=== PATIENT | female | born 1970 | race Caucasian/White ===

== ENCOUNTER 2025-01-25 15:11 | Outpatient (CLI) | payer OTHER, SELFPAY ==
--- NOTE | 2025-01-25 13:52 | DI.RAD_ITS ---
Exam(s) XR PELVIS AP EXAM: XR PELVIS AP CLINICAL HISTORY: OA L HIP. TECHNIQUE: 2D digital imaging was performed. One image was obtained. COMPARISON: RF XR HIP LT MIN 2V AND PELVIS from 03/24/2024 MR MR HIP LT WO CONTRAST from 07/21/2024 FINDINGS: BONES: No acute fracture is present. No bony destructive lesion is seen. JOINTS: No dislocation present. There is moderate narrowing of the left hip joint. The sacroiliac joints and symphysis pubis are unremarkable. SOFT TISSUE: Normal. IMPRESSION: Moderate narrowing of the left hip consistent with degenerative changes. DATA REPOSITORY: RADIATION DOSE DELIVERED:
== END 2025-01-25 15:12 | disposition home or self-care (01) ==
LOC: DIORS 15:11
PROVIDERS: PCP Physician Assistant; Visit Provider Physician Assistant
DX: M16.12 Unilateral primary osteoarthritis, left hip (principal)
CPT/HCPCS: 72170

== ENCOUNTER 2025-01-25 17:10 | Outpatient (REF) | payer OTHER, SELFPAY ==
[2025-01-25 19:26] LABS: HCT 40.5 % (36.0-46.0); HGB 13.2 g/dL (11.2-15.7); MCH 30.6 pg (27.0-33.0); MCHC 32.6 % (32.0-36.0); MCV 94 fL (80-95); MPV 10.0 fL (8.0-11.0); Platelet Count 266 10^3/uL (130-400); RBC 4.32 10^6/uL (3.93-5.22); RDW 12.1 % (11.7-14.6); RDW-SD 42.0 fL; WBC 6.62 10^3/uL (4.4-10.8)
[2025-01-25 19:31] LABS: Anion Gap 5.6 mmol/L (3-11); BUN 23 mg/dL (7-18); CO2 31.4 mmol/L (21.0-32.0); Calcium 9.6 mg/dL (8.5-10.1); Chloride 103 mmol/L (98-107); Estimated GFR 103.35 (mL/min/1.73m2); Glucose 89 mg/dL (74-106); Potassium 4.1 mmol/L (3.5-5.1); Sodium 140 mmol/L (136-145)
== END 2025-01-25 17:11 | disposition home or self-care (01) ==
LOC: LBN 17:10
PROVIDERS: PCP Physician Assistant; Visit Provider Student in an Organized Health Care Education/Training Program
DX: M16.12 Unilateral primary osteoarthritis, left hip (principal); Z01.818 Encounter for other preprocedural examination
CPT/HCPCS: 80048; 85027

== ENCOUNTER 2025-02-02 05:29 | Day surgery (SDC) | payer OTHER, SELFPAY ==
[2025-02-02] VITALS (19 sets, daily range): BP systolic 92–114; BP diastolic 48–72; PULSE 69–91; RESP 11–22; TEMP 36.3–36.5; O2SAT 96–100; BMI 26.9
[2025-02-02] MEDS: Acetaminophen 500 MG TAB 1000 MG PO (06:31)
[2025-02-02] MEDS: Lactated Ringers 1,000 ML 80 ML IV (06:50)
--- NOTE | 2025-02-02 06:56 | W.ANESPRE ---
General Info Date of Service Date Performed: 02/02/25 Height: 5 ft 8 in Weight: 80.2 kg Body Mass Index (BMI): 26.9 Surgical Procedure: Operation Date: 02/02/25 07:50 Proposed Procedure Side Surgeon p Hip Total Hip Anterior, ACTIS Left Francis Ocampo MD Meds Allergies and Home Medications Allergies Allergy/AdvReac Type Severity Reaction Status Date / Time Sulfa (Sulfonamide Allergy Intermediate Hives Verified 02/02/25 06:10 Antibiotics) Home Medication ?Medication ?Instructions ?Recorded fluticasone propionate 50 1 spray intranasal DAILY 06/25/24 mcg/actuation nasal spray,suspension lactobacillus combination no.4 3 3,000 mmu cells PO DAILY 06/25/24 billion cell capsule (Probiotic) ondansetron 4 mg disintegrating 4 mg PO Q8H 06/25/24 tablet rizatriptan 10 mg tablet 10 mg PO ONCE 06/25/24 pantoprazole 40 mg tablet,delayed 40 mg PO DAILY PRN 07/28/24 release V-cacp-Gdkbdrsos-propol-elder 50 ml PO DAILY 09/21/24 mg-5 mg-239 mg-50 mg/5 mL oral syrup (Sambucus Elderberry Immune) rj-6-nnb-epa-fish oil-vit D3 300 cap PO DAILY 09/21/24 mg-1,000 mg-1,000 unit capsule vitamin B complex 1 tab PO DAILY 09/21/24 magnesium oxide 400 mg (241.3 mg 400 mg PO DAILY 01/25/25 magnesium) tablet (MagOx) turmeric root extract 300 mg 300 mg PO DAILY 01/25/25 capsule (Curica Turmeric) acetaminophen 500 mg capsule 1,000 mg (2 x 500 mg) PO Q8H PRN 02/02/25 PRN #0 caps aspirin 81 mg tablet,delayed 81 mg PO BID #60 tabs 02/02/25 release dexamethasone 4 mg tablet 4 mg PO DAILY #2 tabs 02/02/25 naproxen 500 mg tablet 500 mg PO BID #60 tabs 02/02/25 tramadol 50 mg tablet 50 mg PO Q4H PRN #18 tabs 02/02/25 Current Visit Medications: Current Medications Generic Name Dose Route Start Last Admin Trade Name Freq PRN Reason Stop Dose Admin Acetaminophen 1,000 mg 02/02/25 06:00 02/02/25 06:31 Acetaminophen 500 Mg Tab PO 02/02/25 23:59 1,000 mg PREOP YESENIA Administration Celecoxib 400 mg 02/02/25 06:00 Celecoxib 200 Mg Cap PO 02/02/25 23:59 PREOP YESENIA Ringer's Solution 1,000 mls @ 80 mls/hr 02/02/25 06:00 IV 02/02/25 23:59 INFUSION YESENIA Cefazolin Sodium/Dextrose 2 gm in 50 mls @ 100 mls/hr 02/02/25 06:00 Ancef Duplex IVPB 02/02/25 23:59 PREOP YESENIA Tranexamic Acid/Sodium Chloride 1,000 mg in 100 mls @ 600 mls/hr 02/02/25 06:00 IVPB 02/02/25 23:59 PREOP YESENIA IV Miscellaneous Supplies 1 each 02/02/25 06:00 Iv Access IV 02/02/25 23:59 DIRECTED YESENIA Sodium Chloride 0 ml 02/02/25 06:00 Normal Saline Flush 10 Ml Syr IV 02/02/25 23:59 PRN PRN Sodium Chloride 0 ml 02/02/25 06:00 Normal Saline 10 Ml Vial IJ 02/02/25 23:59 DIRECTED PRN Sterile Water 0 ml 02/02/25 06:00 Water,Injection,Sterile 10 Ml Vial IJ 02/02/25 23:59 DIRECTED PRN PFSH Active Problems Active Problems: Problem Status Onset Code Perimenopause Acute N95.1 BRCA2 gene mutation positive Acute Z15.01, Z15.09 Paralabral cyst of left hip Acute M24.852 Labral tear of left hip joint Acute S73.192A Arthritis of left hip Acute M16.12 Medical History Medical History H/O mammogram Irregular periods Chronic headaches Medical History Comments:: pt. reports she has nausea and feels yucky after surgery Surgical History Surgical History History of root canal procedure H/O lateral meniscus repair of left knee H/O dilation and curettage H/O basal cell carcinoma excision Tobacco Smoking/Tobacco Use Status: Former Tobacco Use Passive smoking exposure: No Alcohol Alcohol Intake: current Alcohol intake frequency: a few times a week Alcohol type: wine and hard liquor Substance Use Substance use: Never Substance use type: does not use Details: alcohol: t-2, one Vital Signs and Lab Results Vital Signs Most Recent Vital Signs in EMR: Most Recent Vital Signs Temp Pulse Resp BP Pulse Ox 36.5 C 70 18 98/72 L 97 02/02/25 06:16 02/02/25 06:16 02/02/25 06:16 02/02/25 06:16 02/02/25 06:16 Lab Results Complete Blood Count: WBC, (4.4-10.8) 6.62 10^3/uL 01/25/25, 15:05 RBC, (3.93-5.22) 4.32 10^6/uL 01/25/25, 15:05 Hgb, (11.2-15.7) 13.2 g/dL 01/25/25, 15:05 Hct, (36.0-46.0) 40.5 % 01/25/25, 15:05 Plt Count, (130-400) 266 10^3/uL 01/25/25, 15:05 Complete Metabolic Panel: Sodium, (136-145) 140 mmol/L 01/25/25, 15:05 Potassium, (3.5-5.1) 4.1 mmol/L 01/25/25, 15:05 Chloride, (98-107) 103 mmol/L 01/25/25, 15:05 Carbon Dioxide, (21.0-32.0) 31.4 mmol/L 01/25/25, 15:05 BUN, (7-18) 23 mg/dL H 01/25/25, 15:05 Creatinine, (0.55-1.02) 0.7 mg/dL 01/25/25, 15:05 Est GFR (CKD-EPI 2020), (mL/min/1.73m2) 103.35 01/25/25, 15:05 Calcium, (8.5-10.1) 9.6 mg/dL 01/25/25, 15:05 Glucose, (74-106) 89 mg/dL 01/25/25, 15:05 Anesthesia Assessment and Plan Anesthesia History Personal History: No History of Anesthesia Complications Family History: No Family History of Anesthesia Complications Exercise Tolerance Exercise Tolerance: Metabolic Equivalents>4 Pertinent Negatives Pertinent Negatives: No Symptoms of GERD, No Major Cardiovascular Symptoms or Complaints, No Major Pulmonary Symptoms or Complaints and No History of CVA/TIA Cardiac & Pulmonary Exam Cardiac Exam: Normal S1/S2 Heart Sounds Pulmonary Exam: Clear Bilateral Breath Sounds Implantable Cardiac Device Does patient have a Pacemaker or an ICD?: No Airway Exam Known Difficult Airway: No Mallampati Class: 2 Mouth Opening: Normal (> 3cm) Thyromental Distance: Greater than 3 cm Neck Range of Motion: Full ROM Neck Circumference: Normal Teeth Condition: Normal Dentition ASA Classification ASA Score: ASA 2 Emergency Case?: No NPO Status NPO Status: NPO Clears >2 hours, Solids >8 hours Status Status: Not Relevant due to Medical History (Reports no cycle for >12/months) Anesthesia Plan Resuscitation Status: Full Code Anesthesia Technique: Spinal Anesthesia Airway Planned: Natural Airway Monitors Used: Standard Monitors
--- NOTE | 2025-02-02 07:00 | DI.RAD_ITS ---
Exam(s) XR HIP LT IN OR EXAM: XR HIP LT IN OR CLINICAL HISTORY: arthritis left hip. TECHNIQUE: 2D and realtime digital imaging was performed. COMPARISON: CR XR PELVIS AP from 01/25/2025 FINDINGS: Hard copy images show placement of a total hip prosthesis. Please see procedure note for details. Fluoro time: 38.2seconds RADIATION DOSE DELIVERED: Kar=3.42 mGy
[2025-02-02] MEDS: Naproxen 250 MG TAB (07:09)
--- NOTE | 2025-02-02 07:12 | W.PM.DSUDISC ---
Date of service: 02/02/25 Discharge Plan Disposition Patient Disposition: Home Condition: Good Discharge Details Reason For Visit: Left Hip Arthritis Attending Provider: Francis Ocampo Primary Care Provider: Madelyn Brown Home Meds and New Rx's Prescriptions: New aspirin 81 mg tablet,delayed release (DR/EC) 81 mg PO BID Qty: 60 0RF tramadol 50 mg tablet 50 mg PO Q4H PRNQty: 18 0RF dexamethasone 4 mg tablet 4 mg PO DAILY Qty: 2 0RF Rx Instructions: Starting Post-Operative Day #1 (Day after surgery) naproxen 500 mg tablet 500 mg PO BID Qty: 60 1RF Continued vitamin B complex Tablet 1 tab PO DAILY Sambucus Elderberry Immune 50-5-239-50 mg/5 mL syrup PO DAILY gx-1-uyv-epa-fish oil-vit D3 300-1,000-1,000 mg-mg-unit capsule PO DAILY magnesium oxide [MagOx] 400 mg (241.3 mg magnesium) tablet 400 mg PO DAILY Curica Turmeric 300 mg capsule 300 mg PO DAILY Probiotic 3 billion cell capsule 3,000 mmu cells PO DAILY Rx Instructions: administer with a meal fluticasone propionate 50 mcg/actuation spray,suspension 1 spray intranasal DAILY Rx Instructions: administer into each nostril ondansetron 4 mg tablet,disintegrating 4 mg PO Q8H rizatriptan 10 mg tablet 10 mg PO ONCE Rx Instructions: as a single dose pantoprazole 40 mg tablet,delayed release (DR/EC) 40 mg PO DAILY PRN Patient Comments: 20 mg taken today Changed acetaminophen 500 mg capsule 1,000 mg PO Q8H PRN PRNQty: 0 0RF Discontinued naproxen 250 mg tablet 250 mg PO DAILY ibuprofen [Advil] 200 mg tablet 800 mg PO Q8H PRN Discharge Instructions Additional Instructions: Total Hip Discharge Instructions Activity: The most important activity is to walk. You should try to take short walks a few times a day. You have no restrictions on movement or positioning, but do not try to force what you do. You will find some stiffness and weakness with hip flexion (lifting your knee). Do not try to strengthen this too early, continue to practice walking and stairs and this will come. - Outpatient physical therapy can be helpful to help return you to a normal gait and improve your flexibility and strength. This can start around 2 weeks. For some patients, it?s not necessary. Usually this is determined at the time of discharge or at the first post-operative visit. - You should wear the DARRELL hose on both legs for 2 weeks. Dressing: Keep the surgical dressing in place for at least one week. After the first week it may be removed and replace with light gauze and tape or nothing. It may get wet after 3 days but avoid soaking the dressing. You may apply some ClingWrap over the dressing. If it gets wet, just lightly pat dry. It is important to always keep some gauze between skin folds, especially when you are sitting. Spend some time with the wound exposed when you are lying flat as the incision does wrinkle onto itself. Medications: - You should take Tylenol and an anti-inflammatory Naproxen as your primary pain control medications. - You have been prescribed a stronger pain medication Tramadol for breakthrough pain, take as needed as prescribed. - You will continue your stomach acid reduction agent Pantoprozole to help reduce stomach acid and reflux. - You have also been prescribed Decadron to help with post-operative nausea and pain. You will take this for two days starting tomorrow. - You will be taking Aspirin 81mg twice a day for DVT prevention unless instructed otherwise. - If you have constipation you should take Colace or Miralax (both [id number]). It takes most people 3-4 days to have a bowel movement. Follow-up: 2 weeks If you have any acute concerns or questions, please do not hesitate to contact the office at [phone]. You may contact Dr. Ocampo with any questions after hours through the hospital at [phone] or on his cell phone at [phone]. Referrals: Francis Ocampo MD [ [facility] STAFF PHYSICIAN, Orthopaedic Surgical] Activity:: Activity as Tolerated Remove Dressings/Wound Care:: Do Not Remove Shower/Bathe:: Cover Diet:: As Tolerated Discharge Orders Discharge Orders: Discharge Order (Routine); Ordered 02/02/25 Ordered By: Francis Ocampo
--- NOTE | 2025-02-02 07:32 | ROE_ITS ---
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 Depuy [place] Acetabular Component, 54mm 2. Depuy Acetabular Liner, [id number] 3. Depuy Actis Standard Collared Femoral Stem, Size 6 4. Depuy Altrx Ceramic Femoral Head, Size 36+5mm Indications: I have seen Naomi in clinic for symptoms of hip pain with radiographic findings of chondromalacia and a paralabral cyst invading the anterolateral acetabulum and deep surface of rectus femoris. She has exhausted nonoperative methods and was having significant limitations in daily function and desired better function and less pain. I discussed the technical details of a hip replacement. I explained the risks of the procedure to include, but not limited to, bleeding, infection, pain, stiffness, fracture, damage to nerves and vessels, damage to muscles and tendons, loosening, instability, leg length inequality, need for repeat procedure, blood clot and cardiopulmonary demise. Despite these risks, Naomi elected to proceed. Findings: There was chondromalacia noted about the superior weightbearing portion of the femoral head as well as the superolateral portion of the acetabulum. The cystic structure was not disease identifiable as expected. There was gelatinous material expressed from the rectus femoris sheath and there was a small opening into an interosseous cyst which was not fully debrided or explored. Procedure Description: Naomi was greeted in the preoperative holding area where the correct side was identified and marked. The consent was reviewed with the patient and signed. The history and physical was updated. All questions were answered. She was taken back to the operating room. A spinal anesthestic was then administered. The feet were wrapped with cast padding and Coban and then placed into the boot liners and then into the boots. Care was taken to protect the skin and make sure the heels were fully down and the boots were stable. The patient was then positioned onto the HANA table. Both legs were held in a neutral position. SCDs were applied. The patient was then slid down onto a peroneal post. Prophylactic antibiotics in the form of Cefazolin were administered. 1g of Tranxemic Acid was given intravenously within 30 minutes of incision. The left leg was then prepped with Chloraprep and draped in a standard fashion. A second prep with Chloraprep was performed prior to placement of a shower-curtain type drape with Iodine impregnated skin protection. A timeout to confirm correct identity, side and site, procedure, allergies, anesthesia, and medical concerns was performed. An obliquely oriented incision was made starting lateral to the ASIS and running distal over the Tensor Fascia Tñoa (TFL) muscle belly toward the fibular head, approximately 10cm. The skin and soft tissue was dissected sharply, through Mary?s fascia, and to the fascia of the TFL. With the fascia and superior border of the IT band identified, the fascia was incised with a new knife just above any perforators from the IT band. The TFL muscle belly was bluntly dissected away from the fascia and moved laterally. The fat between TFL and rectus was identified to ensure the dissection was not within the TFL. Blunt dissection created space between abductors and the capsule and retractor was placed over the lateral femoral neck. The fibers of the rectus femoris tendon were identified and these were freed from the anterior capsule. A second cobra retractor was placed around the medial femoral neck. The TFL was further retracted laterally to show the deep fascia. Careful dissection through this layer identified three main crossing vessels of the lateral femoral circumflex. These were cauterized in multiple locations and then cut without any noticeable bleeding. The TFL was further released bluntly from the deep fascia to expose anterior hip capsule and fat The soft tissue orthopaedic retractor was then placed beneath the TFL and against sartorius and medial soft tissues to protect and retract the soft tissues. A T-capsulotomy was then performed starting at the superior lateral acetabulum and moving distally to the intertrochanteric ridge. These capsular flaps were tagged with a No. 1 Vicryl and elevated from within. The capsular flaps were released to the shoulder of the lateral neck and to the lesser trochanter to give excellent visualization of the proximal femur. A neck osteotomy was performed using an oscillating saw based on preoperative templates. This cut started in the shoulder and of the lateral neck and exited medially. The saw was at all times directed medially to avoid injury to the greater trochanter. Gross traction was applied to the leg and the osteotomy opened. The femoral head was removed with a corkscrew, making sure to protect the TFL on its exit. Traction was released after head removal. This was measured on the back table to determine the starting reamer size. Portions of the rectus obscuring visualization were minimally elevated off the superior acetabulum. An anterior retractor was placed over the anterior wall between capsule and labrum and attached to the Gripper retraction system. The femur was rotated to 90 degrees and medial capsule was fully released until the lesser trochanter was palpable and visible; the femur was returned to 30 degrees. A posterior retractor was placed similarly between capsule and labrum. This provided excellent visualization. The contents of the cotyloid fossa were removed with electrocautery and the labrum was removed with a knife. There was significant chondromalacia of the superior acetabulum. The cystic structure seen on MRI was not obvious. There was some fullness of the rectus sheath. This was incised and some gelatinous material was expressed some around the rectus sheath mostly at the lateral aspect and slightly deep to it distal to the insertion on the AIIS. There is no obvious destruction of the acetabular bone. Thus, acetabular reaming began with a 48mm reamer. This first reaming was directed anterior to posterior and medial to get down to the true floor. This was inspected and reamed until the true floor was reached. The anterior retractor was then released and entry and exit was provided by traction on the capsular flaps. I then reamed sequentially up to a 54mm reamer where good fit was obtained. The larger reamers were oriented based on anatomical reference of the anterior and lateral parmar to ensure proper abduction and anteversion. Positioning and size was confirmed with the fluoroscopy. A 54mm Depuy [place] acetabular component was selected. The acetabulum was reamed around the periphery with the selected acetabular size to prevent a rim fit. The deep tissues were irrigated. There is a small cystic opening in the superior aspect of the acetabulum. Once again there was a thickened gelatinous material deep to this. Given it was 3 to 4 mm in width I did not explore this any more. The acetabular component was then impacted in a position of about 40-45 degrees of abduction and 15-20 degrees of anteversion, using the patient?s anatomy as the ultimate landmark. Fluoroscopy was used to confirm this. There was excellent java grails developer of the acetabular component and the inserting handle was removed. A primary acetabular screw was placed into the ilium by drilling through one of the holes in the acetabular component. This was measured and an approrpriately sized screw was placed with excellent purchase. It was checked not to be proud. A second screw was placed in a similar fashion. The acetabular liner, Depuy [id number] polyethylene liner, was inserted and lined up with the tines of the acetabular component. There was no soft tissue interposition. The liner was then impacted into position and confirmed to be well-seated. A portion of the mirta-articular cocktail was then injected around the acetabulum into the capsule and periosteum. This cocktail consisted of 123mg of Ropivacaine, 0.25mg of Epinephrine, 0.04mg of Clonidine, and 15mg of Ketorolac, diluted to 50cc. The leg was rotated to 120 degrees. Any remaining medial capsule was released until the lesser trochanter was easily palpable. A retractor was placed medially. The lateral capsule was further released into the shoulder to allow access to the greater trochanter. A Pel[place]o retractor was placed over the greater trochanter which allowed the trochanter to flip in front of the capsule for excellent exposure. The leg was brought down into maximal extension and 20 degrees of adduction while ensuring there was no impingement on the acetabulum. Any remnant capsule within the trochanter was released. Piriformis and obturator externis were identified and protected. There was excellent access to the proximal femur. The lateral neck remnant was removed with a rongeur. A blunt canal probe was used to identify the canal and trajectory for later broaching. A box osteotome initiated the broach course. A small curved rasp and a curved curette were used to work laterally. Broaching then began with a starter Actis broach. This was inserted manually around the trochanter and into the canal before mallet blows. The broach was seated to a few millimeters below the cut level based on the neck cut and the preoperative template. Sequential broaching was continued with the [place] pneumatic broaching device until a tight fit was obtained with good rotational control of the femur. A trial standard neck was inserted along with a +1.5 trial head. The leg was brought out of extension and adduction and then reduced with traction and internal rotation. The leg was stable anteriorly in a position of 30 degrees of extension and 90 degrees of external rotation. Fluoroscopy was used to ensure there was no fracture and the stem was seated well. Leg lengths were checked with an AP pelvis and pelvic reference points. [employer] navigation system was used to confirm appropriate positioning and leg length and offset. The broach was advanced approximately 3 to 4 mm and head was increased to a +5 mm. Once content with the desired offset and leg lengths, the leg was brought back into extension, external rotation and adduction. The periosteum and surrounding tissue was injected with remaining portion of the mirta-articular cocktail. The proximal femur was irrigated as well as the deep tissues. The Depuy Actis standard collared stem, size 6, was then manually inserted into the proximal femur making sure to control rotation. It was then malleted into position with light blows, giving breaks to allow bone expansion and decrease risk of fracture. The selected Depuy Altrx Ceramic Head, size 36+5mm, was then placed onto the clean and dry trunnion and secured with impaction onto the tapered fit. The leg was brought back out of extension and adduction and reduced with traction and internal rotation. Stability was confirmed with no shuck at 90 degrees of external rotation and 30 degrees of extension. No impingement through range of motion arc. Final x-ray images were obtained with fluoroscopy to confirm adequate positioning and no intraoperative fracture. The deep tissues were thoroughly irrigated with Surgiphor, betadine solution. This was allowed to sit in the wound for 3 minutes before being thoroughly irrigated out with normal saline. The capsule was then reapproximated with the previously placed sutures and the indirect head of the rectus and anterior capsule was inspected and reapproximated with a #1 Vicryl. The TFL fascia was finally closed with a No. 2 Stratafix, barbed suture. Deep tissues were then reapproximated with 0 Vicryl and a running 2-0 Vicryl. The skin was closed with a running 4-0 Monocryl in a subcuticular fashion. This was reinforced with skin glue. A Mepilex silver dressing was applied. At the end of the case, all counts were correct. Naomi was transferred to the hospital bed without difficulty and suffering no apparent complication. She has a good prognosis. Physical therapy will start today and without restrictions, weight-bearing as tolerated. Aspirin 81mg BID will be used for DVT prophylaxis. Date of Procedure: 02/02/25
[2025-02-02] MEDS: ceFAZolin 2 GM/50 ML BAG IVPB (07:33)
[2025-02-02] MEDS: TRANEXAMIC ACID/SOD. CHL. 1,000 MG/100 ML BAG 600 MG IVPB (07:41)
[2025-02-02] MEDS: fentaNYL 100 MCG/2 ML VIAL IVP ×3 (09:21→09:37)
[2025-02-02] MEDS: HYDROmorphone 2 MG/ML SYR IVP (09:40)
[2025-02-02] MEDS: traMADol 50 MG TAB PO (10:42)
--- NOTE | 2025-02-02 11:06 | W.ANESPOSTOP ---
Postoperative Evaluation Date, Time and Location Date Performed: 02/02/25 Time Performed: 10:00 Patient Location: PACU Vital Signs Most Recent Imported Vital Signs: Most Recent Vital Signs Temp Pulse Resp BP Pulse Ox 36.5 C 76 16 100/64 98 02/02/25 10:43 02/02/25 10:43 02/02/25 10:43 02/02/25 10:43 02/02/25 10:43 Pain Score Most Recent Pain Score: Most Recent Pain Score Pain Level 4 02/02/25 10:43 Assessment Mental Status: Awake (Alert & Oriented to Patient Baseline) Airway and Respiratory Function: Patent airway with normal (patient baseline) respiratory exam Cardiovascular Function: Hemodynamically Stable Hydration Status: Adequately Hydrated Nausea & Vomiting: No Nausea or Vomiting Pain: Pain is Moderate or Severe (PRN medication given-see mar ) Postoperative Pain Management: Pain being addressed with medication Peripheral Nerve Block: Patient did not receive a nerve block
[2025-02-02] MEDS: Tranexamic Acid 650 MG TAB 1300 MG PO (11:59)
--- NOTE | 2025-02-02 11:59 | PT.INIE ---
PT Notes Visit Reasons: Left Hip Arthritis Physical Therapy Day Surgery Initial Evaluation Date: 02/02/2025 Referring Doctor: Dr Ocampo PT Orders: PT CONSULT: S/P ortho surgery Precautions: WBAT LLE Patient Profile/Admitting Diagnosis:Naomi is a 54 yo female presented s/p elective left ISAAC by Dr Ocampo on 02/02/2025. Post op uncomplicated PMHX: Paralabral cyst of left hip (Acute) Labral tear of left hip joint (Acute) Arthritis of left hip (Acute) Social History/Home Situation: Pt resides with in [facility] with 3 stes to enter without rail. Pt is independent ADL and amb Pt employed. Pt drives Equipment Owned/DME: FWW fitted and issued, pt has a RTS over low toilet Subjective: Pt reports she has no railing to hold onto at home . able to provide physical assist for stairs Objective: [] General Observation: female presenting reclined with ice to hip , present Mental Status: A+OX4 , cooperative able to follow all instructions agreeable to particiapte in evaluation Pain:3/10 right hip ROM: [] BUE : WNL Left Lower Extremity:WFL Right Lower Extremity: WNL Strength: [] Right Upper Extremity: 5/5 Left Upper Extremity: 5/5 Left Lower Extremity: Hip flexion: 3- /5; hip abduction: 3- /5; hip extension: 3- /5; knee extension: 3 /5; knee flexion: 3- /5 ankle DF: 3 /5 ; ankle PF: 3/5 Right Lower Extremity:5/5 Sensation: intact Bed Mobility/Transfers: [] Supine to sit Supervision Sit to stand SBA Stand to sit SBA Bed to chair SBA with FWW Gait:amb with FWW level surfaces 150 feet with reciprocal pattern with reduced step length. SBA stairs 5 steps with 1 rail with CGA step to pattern; 5 steps without rail with BUTTONHOLE [employer] HAND min A step to pattern cues for sequencing Balance: [] Static Sitting: Normal Dynamic Sitting: good Static Standing: good Dynamic Standing: fair + Special Tests: [] Mobility Limitations Standardized Measure [] [facility] AM-PAC 6 clicks Basic Mobility Inpatient Short Form: [] Raw Score: 23 CMS Score: 11.20% Informed Consent/Education: Patient instructed in purpose of PT consult. Packet containing ISAAC exercise protocol has been given to patient. Education and training on initial set of exercises that can be done at home have been completed with patient. Treatment: 80110: functioanl mobility with FWW various surfaces with SBA and cues for HP to reassure pt. Pt instructed in and able to demonstrate ability to provide assistance on 3 steps without rail for safe entry and exit of home. Assessment: Patient is a 54 yo female who presents with clinical signs and symptoms consistent with current/admitting diagnoses that have resulted to mobility limitations, gait instability, generalized weakness, and impairment of motor control as demonstrated by the following impairment level findings: 1. Decreased strength to left hip major muscle groups 2. Impaired standing balance 3. Limitation of joint range of motion in left hip 4. Impaired functional activity tolerance 5. pain left hip Impairments are contributing to the following functional limitations: 1. Inability to safely ambulate without assistive device 2. Increase completion time for mobility ADL performance 3. Increased fall risk 4. difficulty performing stairs without assistance Patient is assessed as a complexity based on the following: History: 54-year-old female with impairment level findings, functional limitations, and past medical history as indicated above Examination: Demonstrable impairment in strength, balance, and mobility level with underlying impairments and functional limitations as documented above Presentation: evolving/stable Decision Making: moderate Goals: N/A. PT evaluation and 1-2 treatment sessions only for functional mobility training using recommended AD and for HEP instruction. Plan of Care/Treatment Plan: N/A. PT evaluation and 1-2 treatment session only for functional mobility training using recommended AD and for HEP instruction. DISCHARGE RECOMMENDATIONS:Home with HEP TREATMENT CODE/TIME: 99983, [id number]/ [id number] Thank you for the opportunity to participate in the care of this patient. Idalmis Harris,PT [facility]
== END 2025-02-02 13:02 | disposition home or self-care (01) ==
PROVIDERS: PCP Physician Assistant; Visit Provider Student in an Organized Health Care Education/Training Program
PROC: (CPT 27130; principal; 2025-02-02 07:30)
DX: M94.252 Chondromalacia, left hip (principal); M24.852 Other specific joint derangements of left hip, not elsewhere classified
CPT/HCPCS: 27130; 20985; 97162; 97530; 73501; C1776; J0690; J1100; J1171; J2003; J2250; J2371; J2401; J2405; J2704; J3010

== ENCOUNTER 2025-02-15 13:43 | Outpatient (CLI) | payer OTHER, SELFPAY ==
--- NOTE | 2025-02-15 12:30 | DI.RAD_ITS ---
Exam(s) XR HIP LT COMPLETE AP PELVIS EXAM: XR HIP LT COMPLETE AP PELVIS INDICATION: 1ST POST OP L ISAAC. COMPARISON: CR XR PELVIS AP from 01/25/2025 XA XR HIP LT IN OR from 02/02/2025 TECHNIQUE: 2D digital imaging was performed. Two views. FINDINGS: Stable alignment of total left hip prosthesis. No abnormal surrounding bony lucencies. The right hip joint space is maintained. DATA REPOSITORY: RADIATION DOSE DELIVERED:
== END 2025-02-15 13:44 | disposition home or self-care (01) ==
LOC: DIORS 13:43
PROVIDERS: PCP Physician Assistant; Visit Provider Student in an Organized Health Care Education/Training Program
DX: Z96.642 Presence of left artificial hip joint (principal)
CPT/HCPCS: 73502